=== PATIENT | female | born 1960 | race American Indian/Alaskan Native ===

== ENCOUNTER 2018-01-20 11:08 | Emergency (ER) | payer OTHER ==
[2018-01-20 11:13] VITALS: BP 125/66; PULSE 70; TEMP 97.7; BMI 33.6
--- NOTE | 2018-01-20 12:03 | PDOC ---
History of Present Illness - General Chief Complaint: Back Pain Stated Complaint: BACK PAIN Time Seen by Provider: 01/20/18 11:40 History Source: Patient Exam Limitations: No Limitations - History of Present Illness Travel History: No Initial Comments: 01/20/18 12:02 c/o low back pain for 2 days with chills. Pt currently being treated for a UTI. Pt denies abd pain or vomiting. no fever. Pt states pain is in the middle of her back and is worse with moving. 01/20/18 13:13 Past History - Past Medical History Allergies/Adverse Reactions: Allergies Allergy/AdvReac Type Severity Reaction Status Date / Time No Known Allergies Allergy Verified 01/20/18 11:12 Home Medications: Ambulatory Orders Olopatadine HCl [Patanol] 5 ml OP BID #1 drops 03/23/16 Olopatadine HCl [Patanol] 5 ml OP BID #1 drops 03/23/16 Olopatadine HCl [Patanol] 5 ml OP BID #1 drops 03/23/16 Olopatadine HCl [Patanol] 5 ml OP BID #1 drops 03/23/16 Naproxen [Naprosyn] 500 mg PO BID PRN #20 tablet 01/20/18 COPD: No - Suicide/Smoking/Psychosocial Hx Smoking History: Never smoked Have you smoked in the past 12 months: No Information on smoking cessation initiated: No Hx Alcohol Use: No Drug/Substance Use Hx: No Substance Use Type: None Review of Systems - Review of Systems Able to Perform ROS?: Yes Is the patient limited [place] proficient: No Constitutional: No: Symptoms Reported HEENTM: No: Symptoms Reported Respiratory: No: Symptoms reported Cardiac (ROS): No: Symptoms Reported ABD/GI: No: Symptoms Reported : No: Symptoms Reported Musculoskeletal: Yes: Symptoms Reported Integumentary: No: Symptoms Reported Neurological: No: Symptoms reported *Physical Exam - Vital Signs Last Vital Signs Temp Pulse Resp BP Pulse Ox 97.7 F 70 18 125/66 99 01/20/18 11:10 01/20/18 11:10 01/20/18 11:10 01/20/18 11:10 01/20/18 11:10 - Physical Exam General Appearance: Yes: Nourished, Appropriately Dressed HEENT: positive: EOMI, ISIDRO Neck: positive: Supple Respiratory/Chest: positive: Lungs Clear, Normal Breath Sounds Cardiovascular: positive: Regular Rhythm, Regular Rate Gastrointestinal/Abdominal: positive: Normal Bowel Sounds, Soft. negative: Tender Lymphatic: negative: Adenopathy Musculoskeletal: positive: Normal Inspection, Vertebral Tenderness, Other ( lumbar paraspinal soft tissue tenderness ). negative: CVA Tenderness, CVA Tenderness (R), CVA Tenderness (L), Decreased Range of Motion, Muscle Spasm Extremity: positive: Normal Capillary Refill, Normal Inspection, Normal Range of Motion Integumentary: positive: Normal Color, Dry, Warm Neurologic: positive: Fully Oriented, Alert, Normal Mood/Affect, Normal Response , Motor Strength 5/5, Finger to Nose (intact ), Other (neg SLR bilaterally). negative: Abnormal Cranial NS, Numbness, Confused, Disoriented, Depressed Affect , Babinski Medical Decision Making - Medical Decision Making 01/20/18 12:32 cc: low back pain started 2 days ago worse with movement and bending forward. pt states she did injure herself or lift anything heavy neg fever neg abd pain or leg pain will check urine , culture 01/20/18 12:49 neg urine, pt feels better after toradol pt ambulatory steady gait 01/20/18 14:30 *DC/Admit/Observation/Transfer Diagnosis at time of Disposition: Low back pain Qualifiers: Chronicity: acute Back pain laterality: bilateral Sciatica presence: without sciatica Qualified Code(s): M54.5 - Low back pain - Discharge Dispostion Disposition: HOME Condition at time of disposition: Good - Prescriptions Prescriptions: Naproxen [Naprosyn] 500 mg PO BID PRN #20 tablet PRN Reason: Back Pain - Referrals Referrals: Tuan Maldonado [Primary Care Provider] - - Patient Instructions Additional Instructions: apply warm compresses to the lower back take naprosyn as directed for pain 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
[2018-01-20 12:32] LABS: URINE APPEARANCE CLEAR; URINE BILIRUBIN NEGATIVE (NEGATIVE); URINE BLOOD NEGATIVE (NEGATIVE); URINE COLOR LTYELLOW; URINE GLUCOSE (UA) NEGATIVE (NEGATIVE); URINE KETONE NEGATIVE (NEGATIVE); URINE LEUK ESTERASE NEGATIVE (NEGATIVE); URINE NITRITE NEGATIVE (NEGATIVE); URINE PROTEIN NEGATIVE (NEGATIVE); URINE UROBILINOGEN NEGATIVE mg/dL (0.2-1.0)
[2018-01-20] MEDS ORDERED: KETOROLAC TROMETHAMINE 60 MG/2 ML VIAL IM ONE (12:47)
[2018-01-20] MEDS ORDERED: KETOROLAC TROMETHAMINE 60 MG/2 ML VIAL ONE (12:52)
== END 2018-01-20 13:44 | disposition home or self-care (01) ==
LOC: JERFT 11:08
PROC: 3E0233Z Introduction of Anti-inflammatory into Muscle, Percutaneous Approach (ICD-10-PCS; principal; 2018-01-20)
DX: M54.5 Low back pain (principal)
CPT/HCPCS: 81003; 87086; 99281-25

== ENCOUNTER 2021-09-26 16:47 | Emergency (ER) | payer OTHER ==
[2021-09-26 17:08] VITALS: BP 144/84; PULSE 78; TEMP 98; BMI 31.8
== END 2021-09-26 18:32 | disposition home or self-care (01) ==
LOC: JERFT 16:47
DX: S93.491A Sprain of other ligament of right ankle, initial encounter (principal); W10.8XXA Fall (on) (from) other stairs and steps, initial encounter; Y92.9 Unspecified place or not applicable
CPT/HCPCS: 73610-TC-LT-FY; 73610-TC-RT-FY; 73630-TC-LT; 73630-TC-RT-FY; 99284-25

== ENCOUNTER 2023-03-11 08:53 | Emergency (ER) | payer OTHER ==
[2023-03-11 08:59] VITALS: BP 157/80; PULSE 81; RESP 18; TEMP 97.9; BMI 30.9
[2023-03-11] MEDS ORDERED: LIDOCAINE 5% TOPICAL PATCH TP ONE (09:09)
[2023-03-11] MEDS ORDERED: KETOROLAC TROMETHAMINE 30 MG/1 ML VIAL IM ONE (09:09)
[2023-03-11] MEDS ORDERED: KETOROLAC TROMETHAMINE 30 MG/1 ML VIAL ONE (09:18)
[2023-03-11] MEDS ORDERED: LIDOCAINE 5% TOPICAL PATCH ONE (09:18)
== END 2023-03-11 10:30 | disposition home or self-care (01) ==
LOC: JERFT 08:53
PROC: 3E0233Z Introduction of Anti-inflammatory into Muscle, Percutaneous Approach (ICD-10-PCS; principal; 2023-03-11)
DX: M25.512 Pain in left shoulder (principal); W18.2XXA Fall in (into) shower or empty bathtub, initial encounter
CPT/HCPCS: 73030-TC-LT-FY; 99284-25